=== PATIENT | female | born 1945 | race Caucasian/White ===

== ENCOUNTER → 2024-07-22 | Outpatient (CLI) | payer MEDICARE, OTHER, SELFPAY ==
[2024-07-22 15:23] LABS: Absolute Lymphocyte Count 1.45 X10^3/uL (0.83-4.51); Absolute Neutrophil Count 4.4 X10^3/uL (2.0-7.7); Basophil# 0.02 X10^3/uL; Basophil% 0.3 % (0-1); Eosinophils% 1.5 % (0-5); Hematocrit 38.2 % (37-47); Hemoglobin 12.1 g/dL (12.0-15.0); Lymphocyte # 1.45 X10^3/ul (0.83-4.51); Lymphocyte % 22.2 % (19-41); Mean Corp Hgb Conc 31.7 g/dL (32-36); Mean Corpuscular Hgb 29.8 pg (27.0-32.0); Mean Corpuscular Volume 94.1 fL (81-99); Mean Platelet Vol. 11.2 fl (6.2-12.0); Monocyte# 0.51 X10^3/uL; Monocyte% 7.8 % (0-10); NRBC Flagged by Analyzer 0 % (0-5); Neutrophil # 4.44 X10^3/uL (2.7-7.7); Neutrophil % 67.9 % (47-70); Platelet Count 293 K/mm3 (150-450); RBC Distribution Width CV 13.1 % (11.6-14.6); RBC Distribution Width SD 45.3 fl (35.1-43.9); Red Blood Count 4.06 M/mm3 (4.2-5.4); White Blood Count 6.5 K/mm3 (4.4-11.0)
[2024-07-22 19:38] LABS: Hemoglobin A1c 5.5 % (3.8-5.6)
== END | disposition home or self-care (01) ==
LOC: MFPLAB 12:16
PROVIDERS: PCP Family Medicine; Visit Provider Family Medicine
DX: H35.60 Retinal hemorrhage, unspecified eye (principal)
CPT/HCPCS: 36415; 83036; 85025

== ENCOUNTER → 2024-08-29 | Outpatient (CLI) | payer MEDICARE, OTHER, SELFPAY ==
[2024-08-29 18:12] LABS: Protein, Urine (Random) < 6.0 mg/dL (<11.9); Protein:Creat Ratio 339 mg/g CRE (0-200)
[2024-08-29 18:19] LABS: Anion Gap 4 (5-15); BUN 19 mg/dL (7-18); BUN/Creat Ratio 27.4 RATIO (10-20); Calcium,Total 9.2 mg/dL (8.5-10.1); Chloride 102 mmol/L (98-107); Cholesterol 215 mg/dL (200); Creatinine, Serum 0.69 mg/dL (0.55-1.02); EST Glomerular Filtration Rate 87 mL/min (>60); Est Glom Filt Rate - Afr Amer 105 mL/min (>60); Glucose 80 mg/dL (74-106); High Density Lipoprotein 73 mg/dL; Potassium 4.1 mmol/L (3.5-5.1); Sodium Level 135 mmol/L (136-145); Triglycerides 122 mg/dL; Very Low Density Lipoprotein 24 mg/dL (5-40)
== END | disposition home or self-care (01) ==
LOC: MFPLAB 14:27
PROVIDERS: PCP Family Medicine; Visit Provider Family Medicine
DX: I10 Essential (primary) hypertension (principal)
CPT/HCPCS: 36415; 80048; 80061; 82570; 84156

== ENCOUNTER → 2025-06-23 | Outpatient (CLI) | payer MEDICARE, OTHER, SELFPAY ==
--- OUTSIDE RECORDS SUMMARY | 2025-06-23 09:59 | XMS RPT_ITS | CCD ---
Author Organization [facility] Care Team Providers Care Production Artist Name Role Phone Mitzi Oconnor Primary Care Unavailable Mitzi Oconnor Attending Unavailable Mitzi Oconnor Primary Care Unavailable Mitzi Oconnor Attending Unavailable Problems Problem Classification Problem Date Documented Da te Episodic/Chronic Essential hypertension (1 source) Essential (primary) hypertension; Translations: [Essential (primary) hypertension] Onset: 09-20-2024 Chronic Medical examination/evaluation (1 source) Encounter for examination for normal comparison and control in clinical research program; Translations: [Encounter for examination for normal comparison and control in clinical research program] Onset: 07-09-2018 Episodic Retinal detachments; defects; vascular occlusion; and retinopathy (1 source) Retinal hemorrhage, unspecified eye; Translations: [Retinal hemorrhage, unspecified eye] Onset: 08-11-2024 Chronic Results Test Name Value Interpretation Reference Range Facility Basic Metabolic Profile (BMP )on 08-29-2024 BUN/CRE 27.4 RATIO High 10-[address] [facility] Comment on above: Performed By: #### L 500.2500, L500.4100, L501.0900 #### [facility] [address] [place], [address] CA,Total 9.2 mg/dL Normal 8.5-10.[address] [facility] Comment on above: Performed By: #### L 500.2500, L500.4100, L501.0900 #### [facility] [address] [place], [address] Chloride [Moles/Vol] 102 mmol/L Normal 98-[address] [facility] Comment on above: Performed By: #### L 500.2500, L500.4100, L501.0900 #### [facility] [address] [place], [address] CO2 [Moles/Vol] 29.0 mmol/L Normal 21.0-32.[address] [facility] Comment on above: Performed By: #### L 500.2500, L500.4100, L501.0900 #### [facility] [address] [place], [address] Creatinine [Mass/Vol] 0.69 mg/dL Normal 0.55-1.[address] [facility] Comment on above: Result Comment: The validity of the calculated GFR GFRAA in patients over 70 years has not been determined. Clinical correlation is essential. Performed By: #### L 500.2500, L500.4100, L501.0900 #### [facility] [address] [place], [address] EST GFR - AA 105 mL/min Normal >[address] [facility] Comment on above: Result Comment: Afri can Montserratian GFR Calc Performed By: #### L 500.2500, L500.4100, L501.0900 #### [facility] [address] [place], [address] GAP 4 Low 5-[address] [facility] Comment on above: Performed By: #### L 500.2500, L500.4100, L501.0900 #### [facility] [address] [place], [address] GFR/1.73 sq M.predicted among non-blacks MDRD (S/P/Bld) [Vol rate/Area] 87 mL/min/{1.73_m2} Normal >[address] [facility] Comment on above: Result Comment: Non- GFR Calc Performed By: #### L 500.2500, L500.4100, L501.0900 #### [facility] [address] [place], [address] Glucose [Mass/Vol] 80 mg/dL Normal 74-[address] [facility] Comment on above: Performed By: #### L 500.2500, L500.4100, L501.0900 #### [facility] [address] [place], [address] Potassium [Moles/Vol] 4.1 mmol/L Normal 3.5-5.[address] [facility] Comment on above: Performed By: #### L 500.2500, L500.4100, L501.0900 #### [facility] [address] [place], [address] Sodium [Moles/Vol] 135 mmol/L Low 136-[address] [facility] Comment on above: Performed By: #### L 500.2500, L500.4100, L501.0900 #### [facility] [address] [place], [address] Urea nitrogen [Mass/Vol] 19 mg/dL High 7-[address] [facility] Comment on above: Performed By: #### L 500.2500, L500.4100, L501.0900 #### [facility] [address] [place], [address] Lipid Profileon 08-29-2024 Cholesterol [Mass/Vol] 215 mg/dL High [address] [facility] Comment on above: Result Comment: <200 mg/dL Desirable 200-240 mg/dL Borderline >240 mg/dL High Risk Performed By: #### L 500.2500, L500.4100, L501.0900 #### [facility] [address] [place], [address] Cholesterol in HDL [Mass/Vol] 73 mg/dL Normal [facility] Comment on above: Result Comment: The drugs N-Acetylcysteine and Metamizole may falsely depress this assay. Reference Range HDL <40 mg/dL Low HDL Cholesterol HDL >or= 60 mg/dL High HDL Cholesterol Performed By: #### L 500.2500, L500.4100, L501.0900 #### [facility] [address] [place], [address] Cholesterol in LDL [Mass/Vol] 118 mg/dL Normal 0-[address] [facility] Comment on above: Performed By: #### L 500.2500, L500.4100, L501.0900 #### [facility] [address] [place], [address] Cholesterol in VLDL [Mass/Vol] 24 mg/dL Normal 5-[address] [facility] Comment on above: Performed By: #### L 500.2500, L500.4100, L501.0900 #### [facility] [address] [place], [address] Triglyceride [Mass/Vol] 122 mg/dL Normal [facility] Comment on above: Result Comment: The drugs N-Acetylcysteine and Metamizole may falsely depress this assay. Serum Triglycerides Reference Interval Normal <150 mg/dL Borderline high 150 - 199 mg/dL High 200 - 499 mg/dL Very High > or = 500 mg/dL Performed By: #### L 500.2500, L500.4100, L501.0900 #### [facility] [address] [place], [address] Protein+Creatinine Ratio,Uri neon 08-29-2024 PROT:CRE RATIO 339 mg/g CRE High 0-[address] [facility] Comment on above: Performed By: #### L 500.2500, L500.4100, L501.0900 #### [facility] [address] [place], [address] PROTEIN,UR.RAN. < 6.0 Normal <11.[address] [facility] Comment on above: Performed By: #### L 500.2500, L500.4100, L501.0900 #### [facility] [address] [place], [address] UR CREAT 17.10 mg/dL Normal NO RANGE EST. [facility] Comment on above: Performed By: #### L 500.2500, L500.4100, L501.0900 #### [facility] [address] [place], [address] CBC W/Diff, Automatedon 09-0 -2023 Absolute Lymph 1.45 X10 3/uL Normal 0.83-4.[address] [facility] Comment on above: Order Comment: Order Date: 07/22/24 Order Info: 0184-1 - CBCD Performed By: #### L 501.9985, L100.0100 #### [facility] [address] [place], [address] Absolute Neut 4.4 X10 3/uL Normal 2.0-7.[address] [facility] Comment on above: Order Comment: Order Date: 07/22/24 Order Info: 018- - CBCD Performed By: #### L 501.9985, L100.0100 #### [facility] [address] [place], [address] Basophils/100 WBC (Bld) 0.3 % Normal 0-[address] [facility] Comment on above: Order Comment: Order Date: 07/22/24 Order Info: 018-1 - CBCD Performed By: #### L 501.9985, L100.0100 #### [facility] [address] [place], [address] Eosinophils/100 WBC (Bld) 1.5 % Normal 0-[address] [facility] Comment on above: Order Comment: Order Date: 07/22/24 Order Info: 0184-1 - CBCD Performed By: #### L 501.9985, L100.0100 #### [facility] [address] [place], [address] Erythrocyte distribution width (RBC) [Ratio] 13.1 % Normal 11.6-14.[address] [facility] Comment on above: Order Comment: Order Date: 07/22/24 Order Info: 0184-1 - CBCD Performed By: #### L 501.9985, L100.0100 #### [facility] [address] [place], [id number] Hematocrit (Bld) [Volume fraction] 38.2 % Normal 37-[address] [facility] Comment on above: Order Comment: Order Date: 07/22/24 Order Info: 0184- - CBCD Performed By: #### L 501.9985, L100.0100 #### [facility] [address] [place], [id number] Hemoglobin (Bld) [Mass/Vol] 12.1 g/dL Normal 12.0-15.[address] [facility] Comment on above: Order Comment: Order Date: 07/22/24 Order Info: 018- - CBCD Performed By: #### L 501.9985, L100.0100 #### [facility] [address] [place], [id number] IG% 0.300 Normal 0.0-0.[address] [facility] Comment on above: Order Comment: Order Date: 07/22/24 Order Info: 018- - CBCD Result Comment: IG% - Immature Granulocytes (promyelocytes, myelocytes and metamyelocytes) > 1% indicates that a LEFT SHIFT is Present. Performed By: #### L 501.9985, L100.0100 #### [facility] [address] [place], [id number] Lymphocytes/100 WBC (Bld) 22.2 % Normal 19-[address] [facility] Comment on above: Order Comment: Order Date: 07/22/24 Order Info: 0184- - CBCD Performed By: #### L 501.9985, L100.0100 #### [facility] [address] [place], [id number] MCH (RBC) [Entitic mass] 29.8 pg Normal 27.0-32.[address] [facility] Comment on above: Order Comment: Order Date: 07/22/24 Order Info: 0184- - CBCD Performed By: #### L 501.9985, L100.0100 #### [facility] [address] [place], [address] MCHC (RBC) [Mass/Vol] 31.7 g/dL Low 32-[address] [facility] Comment on above: Order Comment: Order Date: 07/22/24 Order Info: 0184-1 - CBCD Performed By: #### L 501.9985, L100.0100 #### [facility] [address] [place], [address] MCV (RBC) [Entitic vol] 94.1 fL Normal 81-[address] [facility] Comment on above: Order Comment: Order Date: 07/22/24 Order Info: 0184-1 - CBCD Performed By: #### L 501.9985, L100.0100 #### [facility] [address] [place], [address] Monocytes/100 WBC (Bld) 7.8 % Normal 0-[address] [facility] Comment on above: Order Comment: Order Date: 07/22/24 Order Info: 018-1 - CBCD Performed By: #### L 501.9985, L100.0100 #### [facility] [address] [place], [address] Neutrophils/100 WBC (Bld) 67.9 % Normal 47-[address] [facility] Comment on above: Order Comment: Order Date: 07/22/24 Order Info: 0184-1 - CBCD Performed By: #### L 501.9985, L100.0100 #### [facility] [address] [place], [address] Nucleated RBC (Bld) [#/Vol] 0 10*3/uL Normal 0-[address] [facility] Comment on above: Order Comment: Order Date: 07/22/24 Order Info: 0184-1 - CBCD Performed By: #### L 501.9985, L100.0100 #### [facility] [address] [place], [id number] Platelet mean volume (Bld) [Entitic vol] 11.2 fL Normal 6.2-12.[address] [facility] Comment on above: Order Comment: Order Date: 07/22/24 Order Info: 0184-1 - CBCD Performed By: #### L 501.9985, L100.0100 #### [facility] [address] [place], [id number] Platelets (Bld) [#/Vol] 293 10*3/uL Normal 150-[address] [facility] Comment on above: Order Comment: Order Date: 07/22/24 Order Info: 0184-1 - CBCD Performed By: #### L 501.9985, L100.0100 #### [facility] [address] [place], [id number] RBC (Bld) [#/Vol] 4.06 10*6/uL Low 4.2-5.4 [facility] Comment on above: Order Comment: Order Date: 07/22/24 Order Info: 0184-1 - CBCD Performed By: #### L 501.9985, L100.0100 #### [facility] [address] [place], [id number] RDW SD 45.3 fl High 35.1-43.[address] [facility] Comment on above: Order Comment: Order Date: 07/22/24 Order Info: 0184-1 - CBCD Performed By: #### L 501.9985, L100.0100 #### [facility] [address] [place], [id number] WBC (Bld) [#/Vol] 6.5 10*3/uL Normal 4.4-11.0 [facility] Comment on above: Order Comment: Order Date: 07/22/24 Order Info: 0184-1 - CBCD Performed By: #### L 501.9985, L100.0100 #### [facility] [address] [place], [place], [address] Hemoglobin A1con 07-22-2024 HbA1c (Bld) [Mass fraction] 5.5 % Normal 3.8-5.[address] [facility] Comment on above: Order Comment: Order Date: 07/22/24 Order Info: 4548-4 - A1C Result Comment: Norm al < 5.7 % Prediabetic 5.7 - 6.4 % Diabetic >or= 6.5 % Please note range changes. Performed By: #### L 501.9985, L100.0100 #### [facility] [address] [place], [place], [address] CNOVon 07-09-2018 CNOV Office Visit ([facility]) KENYA DELACRUZ ([id number]) 1945 [facility] Time Provider Department07/09/18 10:00 AM LAB [facility] [address] During your visit today, we recorded the following information about you:Satnam Gasca LPN, BRAKE TESTER 07/09/2018 5:17 PM Mindi Delacruz is a 73 year old female patient here for the DilatedCardiomyopathy Precision Medicine Study (DCM) #: 13-406 Dilated Cardiomyopathy Precision Medicine Study (DCM)Aviation Safety Technician: Dr. Gaetano Vargas Coordinator: Mundo Gasca1. Aviation Safety Technician and/or Research Nurse explained the protocol to thesubject? YES2. Risks, benefits, alternative procedures explained? YES3. Reviewed HIPPA disclosure information with the subject? YES4. Follow-up requirements explained? YES5. Reviewed research related injuries and cost with subject? YES6. Subject asked appropriate questions and answers provided to the subject? YES7. Subject read and verbally understands informed consent? YES8. Subject was given a copy of the signed informed consent? YES9. Family present at the time of the consent: Subject and . Subject ID Band in place? YESConsent signed date/time 07/09/2018 @ 1010 by: Nicol Sherman of [facility] minor child, was both the parent and child signatures obtained: MARLENE Ramachandran1. Study participant group: Family [id number]. Confirm interest in family based genetics? YES13. Enrollment Tracking form completed? YES14. Medical Records Query completed? YES15. Baseline Patient Interview Questionnaire completed? YES via phone with [facility]16. Baseline Life and Family Survey completed? YES17. Medical Release form/PHI signed? YES18. If child obtained parents signature: NA19. DCM brochure provided? YES20. Cardiovascular Screening performed? YES21. Did participant agree to have sample and information stored for potentialuse in genetic research? Yes22. Did participant agree to being contacted regarding future use of samplesand information? Yes23. Blood Drawn as per protocol? YesTime: 1150 Butterfly used in left antecubital area. Blood drawn with vacutainerand labs drawn per protocol. Butterfly removed after blood draw and secured with sterilegauze. 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 Gaetano Vargas Coordinator: Mundo Gasca1. Aviation Safety Technician and/or Research Nurse explained the protocol tothe subject? YES2. Risks, benefits, alternative procedures explained? YES3. Reviewed HIPPA disclosure information with the subject? YES4. Follow-up requirements explained? YES5. Reviewed research related injuries and cost with subject? YES6. Subject asked appropriate questions and answers provided to thesubject? YES7. Subject read and verbally understands informed consent? YES8. Subject was given a copy of the signed informed consent? YES9. Family present at the time of the consent: Subject and [email or web address]. Subject ID Band in place? YESConsent signed date/time 07/09/2018 @ 1010 by: Nicol Sherman of [facility] minor child, was both the parent and child signatures obtained: MARLENE Ramachandran1. Study participant group: Family [id number]. Confirm interest in family based genetics? YES13. Enrollment Tracking form completed? YES14. Medical Records Query completed? YES15. Baseline Patient Interview Questionnaire completed? YES via phone [email or web address]. Baseline Life and Family Survey completed? YES17. Medical Release form/PHI signed? YES18. If child obtained parents signature: NA19. DCM brochure provided? YES20. Cardiovascular Screening performed? YES21. Did participant agree to have sample and information stored forpotential use in genetic research? Yes22. Did participant agree to being contacted regarding future use ofsamples and information? Yes23. Blood Drawn as per protocol? YesTime: 1150 Butterfly used in left antecubital area. Blood drawn withvacutainer and labs drawn per protocol. Butterfly removed after blood draw and secured withsterile gauze. Patient tolerated procedure well.Satnam Gasca LPN Normal [facility] Encounters Encounter Date Encounter Type Care Provider Facility Start: 08-29-2024 End: 08-29-2024 ambulatory Mitzi Oconnor Facility:[facility] Start: 07-22-2024 End: 07-22-2024 ambulatory Mitzi S Jollmonroe Facility:[facility] Start: 07-09-2018 End: 07-09-2018 Patient encounter [facility] Payers Date Payer Category Payer Medicare [id number] 2024 Self-pay 2024 Unknown [id number] Unknown [id number] Unknown [id number] Summary Purpose Family History No Family History Records FoundNo Family History Records Found Advance Directives No Advanced Directives Records FoundNo Advanced Directives Records Found Additional Source Comments INFORMATION SOURCE (unrecogn ized section and content) DATE CREATED AUTHOR 07/11/2018 [facility] DATE CREATED AUTHOR AUTHOR'S ORGANIZ ATION 09/22/2024 [facility] FOR RECORDS PERTAINING TO PATIENTS WHO ARE OR HAVE BEEN ENROLLED IN A CHEMICAL DEPENDENCY/SUBSTANCEABUSE PROGRAM, SOME INFORMATION MAY BE OMITTED. This clinical summary was aggregated from multiple sources. Caution should be exercised in using it in the provision of clinical care. This summary normalizes information from multiple sources, and as a consequence, information in this document may materially change the coding, format and clinical context of patient data. In addition, data may be omitted in some cases. CLINICAL DECISIONS SHOULD BE BASED ON THE PRIMARY CLINICAL RECORDS. [employer] provides no warranty or guarantee of the accuracy or completeness of information in this document.
--- OUTSIDE RECORDS SUMMARY | 2025-06-23 09:59 | XMS RPT_ITS | CCD ---
Author Organization [facility] Care Team Providers Care Fiscal Manager Name Role Phone Mitzi Oconnor Primary Care [...] )on 08-29-2024 BUN/CRE 27.4 RATIO High 10-20 [place] Comment on above: Performed By: #### L 500.2500, L500.4100, L501.0900 #### [facility] [address] [place], [address] CA,Total 9.2 mg/dL Normal 8.5-10.1 [place] Comment on above: Performed By: #### L 500.2500, L500.4100, L501.0900 #### [facility] [address] [place], [address] Chloride [Moles/Vol] 102 mmol/L Normal 98-107 [place] Comment on above: Performed By: #### L 500.2500, L500.4100, L501.0900 #### [facility] [address] [place], [address] CO2 [Moles/Vol] 29.0 mmol/L Normal 21.0-32.0 [place] Comment on above: Performed By: #### L 500.2500, L500.4100, L501.0900 #### [facility] [address] [place], [address] Creatinine [Mass/Vol] 0.69 mg/dL Normal 0.55-1.02 [place] Comment on above: Result Comment: The validity of the calculated GFR GFRAA in patients over 70 years has not been determined. Clinical correlation is essential. Performed By: #### L 500.2500, L500.4100, L501.0900 #### [facility] [address] [place], [address] EST GFR - AA 105 mL/min Normal >60 [place] Comment on above: Result Comment: Afri can Gambian GFR Calc Performed By: #### L 500.2500, L500.4100, L501.0900 #### [facility] [address] [place], [address] GAP 4 Low 5-15 [place] Comment on above: Performed By: #### L 500.2500, L500.4100, L501.0900 #### [facility] [address] [place], [address] GFR/1.73 sq M.predicted among non-blacks MDRD (S/P/Bld) [Vol rate/Area] 87 mL/min/{1.73_m2} Normal >60 [place] Comment on above: Result Comment: Non- GFR Calc Performed By: #### L 500.2500, L500.4100, L501.0900 #### [facility] [address] [place], [address] Glucose [Mass/Vol] 80 mg/dL Normal 74-106 [place] Comment on above: Performed By: #### L 500.2500, L500.4100, L501.0900 #### [facility] [address] [place], [address] Potassium [Moles/Vol] 4.1 mmol/L Normal 3.5-5.1 [place] Comment on above: Performed By: #### L 500.2500, L500.4100, L501.0900 #### [facility] [address] [place], [address] Sodium [Moles/Vol] 135 mmol/L Low 136-145 [place] Comment on above: Performed By: #### L 500.2500, L500.4100, L501.0900 #### [facility] [address] [place], [address] Urea nitrogen [Mass/Vol] 19 mg/dL High 7-18 [place] Comment on above: Performed By: #### L 500.2500, L500.4100, L501.0900 #### [facility] [address] [place], [address] Lipid Profileon 08-29-2024 Cholesterol [Mass/Vol] 215 mg/dL High 200 [place] Comment on above: Result Comment: <200 mg/dL Desirable 200-240 mg/dL Borderline >240 mg/dL High Risk Performed By: #### L 500.2500, L500.4100, L501.0900 #### [facility] [address] [place], [address] Cholesterol in HDL [Mass/Vol] 73 mg/dL Normal [place] Comment on above: Result Comment: The drugs N-Acetylcysteine and Metamizole may falsely depress this assay. Reference Range HDL <40 mg/dL Low HDL Cholesterol HDL >or= 60 mg/dL High HDL Cholesterol Performed By: #### L 500.2500, L500.4100, L501.0900 #### [facility] [address] [place], [address] Cholesterol in LDL [Mass/Vol] 118 mg/dL Normal 0-130 [place] Comment on above: Performed By: #### L 500.2500, L500.4100, L501.0900 #### [facility] [address] [place], [address] Cholesterol in VLDL [Mass/Vol] 24 mg/dL Normal 5-40 [place] Comment on above: Performed By: #### L 500.2500, L500.4100, L501.0900 #### [facility] [address] [place], [address] Triglyceride [Mass/Vol] 122 mg/dL Normal [place] Comment on above: Result Comment: The drugs N-Acetylcysteine and Metamizole may falsely depress this assay. Serum Triglycerides Reference Interval Normal <150 mg/dL Borderline high 150 - 199 mg/dL High 200 - 499 mg/dL Very High > or = 500 mg/dL Performed By: #### L 500.2500, L500.4100, L501.0900 #### [facility] [address] [place], [address] Protein+Creatinine Ratio,Uri neon 08-29-2024 PROT:CRE RATIO 339 mg/g CRE High 0-200 [place] Comment on above: Performed By: #### L 500.2500, L500.4100, L501.0900 #### [facility] [address] [place], [address] PROTEIN,UR.RAN. < 6.0 Normal <11.9 [place] Comment on above: Performed By: #### L 500.2500, L500.4100, L501.0900 #### [facility] [address] [place], [address] UR CREAT 17.10 mg/dL Normal NO RANGE EST. [place] Comment on above: Performed By: #### L 500.2500, L500.4100, L501.0900 #### [facility] [address] [place], [address] CBC W/Diff, Automatedon 09-0 -2023 Absolute Lymph 1.45 X10 3/uL Normal 0.83-4.51 [place] Comment on above: Order Comment: Order Date: 07/22/24 Order Info: 0184-1 - CBCD Performed By: #### L 501.9985, L100.0100 #### [facility] [address] [place], [address] Absolute Neut 4.4 X10 3/uL Normal 2.0-7.7 [place] Comment on above: Order Comment: Order Date: 07/22/24 Order Info: 018- - CBCD Performed By: #### L 501.9985, L100.0100 #### [facility] [address] [place], [address] Basophils/100 WBC (Bld) 0.3 % Normal 0-1 [place] Comment on above: Order Comment: Order Date: 07/22/24 Order Info: 018-1 - CBCD Performed By: #### L 501.9985, L100.0100 #### [facility] [address] [place], [address] Eosinophils/100 WBC (Bld) 1.5 % Normal 0-5 [place] Comment on above: Order Comment: Order Date: 07/22/24 Order Info: 0184-1 - CBCD Performed By: #### L 501.9985, L100.0100 #### [facility] [address] [place], [address] Erythrocyte distribution width (RBC) [Ratio] 13.1 % Normal 11.6-14.6 [place] Comment on above: Order Comment: Order Date: 07/22/24 Order Info: 0184-1 - CBCD Performed By: #### L 501.9985, L100.0100 #### [facility] [address] [place], [address] Hematocrit (Bld) [Volume fraction] 38.2 % Normal 37-47 [place] Comment on above: Order Comment: Order Date: 07/22/24 Order Info: 0184- - CBCD Performed By: #### L 501.9985, L100.0100 #### [facility] [address] [place], [address] Hemoglobin (Bld) [Mass/Vol] 12.1 g/dL Normal 12.0-15.0 [place] Comment on above: Order Comment: Order Date: 07/22/24 Order Info: 018- - CBCD Performed By: #### L 501.9985, L100.0100 #### [facility] [address] [place], [address] IG% 0.300 Normal 0.0-0.9 [place] Comment on above: Order Comment: Order Date: 07/22/24 Order Info: 018- - CBCD Result Comment: IG% - Immature Granulocytes (promyelocytes, myelocytes and metamyelocytes) > 1% indicates that a LEFT SHIFT is Present. Performed By: #### L 501.9985, L100.0100 #### [facility] [address] [place], [address] Lymphocytes/100 WBC (Bld) 22.2 % Normal 19-41 [place] Comment on above: Order Comment: Order Date: 07/22/24 Order Info: 0184- - CBCD Performed By: #### L 501.9985, L100.0100 #### [facility] [address] [place], [address] MCH (RBC) [Entitic mass] 29.8 pg Normal 27.0-32.0 [facility] Comment on above: Order Comment: Order Date: 07/22/24 Order Info: 0184- - CBCD Performed By: #### L 501.9985, L100.0100 #### [facility] [address] [place], [address] MCHC (RBC) [Mass/Vol] 31.7 g/dL Low 32-36 [place] Comment on above: Order Comment: Order Date: 07/22/24 Order Info: 0184-1 - CBCD Performed By: #### L 501.9985, L100.0100 #### [facility] [address] [place], [address] MCV (RBC) [Entitic vol] 94.1 fL Normal 81-99 [place] Comment on above: Order Comment: Order Date: 07/22/24 Order Info: 0184-1 - CBCD Performed By: #### L 501.9985, L100.0100 #### [facility] [address] [place], [address] Monocytes/100 WBC (Bld) 7.8 % Normal 0-10 [place] Comment on above: Order Comment: Order Date: 07/22/24 Order Info: 018-1 - CBCD Performed By: #### L 501.9985, L100.0100 #### [facility] [address] [place], [address] Neutrophils/100 WBC (Bld) 67.9 % Normal 47-70 [place] Comment on above: Order Comment: Order Date: 07/22/24 Order Info: 0184-1 - CBCD Performed By: #### L 501.9985, L100.0100 #### [facility] [address] [place], [address] Nucleated RBC (Bld) [#/Vol] 0 10*3/uL Normal 0-5 [place] Comment on above: Order Comment: Order Date: 07/22/24 Order Info: 0184-1 - CBCD Performed By: #### L 501.9985, L100.0100 #### [facility] [address] [place], [address] Platelet mean volume (Bld) [Entitic vol] 11.2 fL Normal 6.2-12.0 [place] Comment on above: Order Comment: Order Date: 07/22/24 Order Info: 0184-1 - CBCD Performed By: #### L 501.9985, L100.0100 #### [facility] [address] [place], [address] Platelets (Bld) [#/Vol] 293 10*3/uL Normal 150-450 [place] Comment on above: Order Comment: Order Date: 07/22/24 Order Info: 0184-1 - CBCD Performed By: #### L 501.9985, L100.0100 #### [facility] [address] [place], [address] RBC (Bld) [#/Vol] 4.06 10*6/uL Low 4.2-5.4 [facility] Comment on above: Order Comment: Order Date: 07/22/24 Order Info: 0184-1 - CBCD Performed By: #### L 501.9985, L100.0100 #### [facility] [address] [place], [address] RDW SD 45.3 fl High 35.1-43.9 [place] Comment on above: Order Comment: Order Date: 07/22/24 Order Info: 0184-1 - CBCD Performed By: #### L 501.9985, L100.0100 #### [facility] [address] [place], [address] WBC (Bld) [#/Vol] 6.5 10*3/uL Normal 4.4-11.0 [facility] Comment on above: Order Comment: Order Date: 07/22/24 Order Info: 0184-1 - CBCD Performed By: #### L 501.9985, L100.0100 #### [facility] [address] [place], [place], [address] Hemoglobin A1con 07-22-2024 HbA1c (Bld) [Mass fraction] 5.5 % Normal 3.8-5.6 [place] Comment on above: Order Comment: Order Date: 07/22/24 Order Info: 4548-4 - A1C Result Comment: Norm al < 5.7 % Prediabetic 5.7 - 6.4 % Diabetic >or= 6.5 % Please note range changes. Performed By: #### L 501.9985, L100.0100 #### [facility] [address] [place], [place], [address] CNOVon 07-09-2018 CNOV Office Visit ([facility]) KENYA DELACRUZ ([id number]) 1945 [facility] Time Provider Department07/09/18 10:00 AM LAB [facility] [address] During your visit today, we recorded the following information about you:Satnam Gasca LPN, BUTTONHOLE MACHINE OPERATOR 07/09/2018 5:17 PM Mindi Delacruz is a 73 year old female patient here for the DilatedCardiomyopathy Precision Medicine Study (DCM) #: [id number] Dilated Cardiomyopathy Precision Medicine Study (DCM)Medical Lab Technologist: Dr. Gaetano Vargas Coordinator: Mundo Gasca1. Medical Lab Technologist and/or Research Nurse explained the protocol to [...] the time of the consent: Subject and [email or web address]. Subject ID Band in place? YESConsent signed date/time 07/09/2018 @ 1010 by: Nicol Sherman of [facility] minor child, was both the parent and child signatures obtained: MARLENE Ramachandran1. Study participant group: Family [id number]. Confirm interest in family based genetics? YES13. [...] Status:Closed by SATNAM GASCA on 07/09/18 [facility]ESS[facility] 07-09-2018 Protein mass conc HNO ID: [id number] thor: Satnam Mcgowan) RK Gascaervice: (none)Author Type: LICENSED NURSEType: Progress NotesFiled: 07/09/2018 5:17 PMNote Text:Kenya Delacruz is a 73 year old female patient here for the DilatedCardiomyopathy Precision Medicine Study (DCM) /IRB #: [id number] Dilated Cardiomyopathy Precision Medicine Study (DCM)Medical Lab Technologist: Dr. Gaetano Vargas Coordinator: Mundo Gasca1. Medical Lab Technologist and/or Research Nurse explained the protocol tothe [...] the time of the consent: Subject and [id number]. Subject ID Band in place? YESConsent signed date/time 07/09/2018 @ 1010 by: Nicol Sherman of [facility] minor child, was both the parent and child signatures obtained: MARLENE Ramachandran1. Study participant group: Family [email or web address]. Confirm interest in family based genetics? YES13. Enrollment Tracking form completed? YES14. Medical Records Query completed? YES15. Baseline Patient Interview Questionnaire completed? YES via phone [id number]. Baseline Life and Family Survey completed? YES17. [...] Patient tolerated procedure well.Satnam Gasca LPN Normal [facility] Encounters Encounter Date Encounter Type Care Provider Facility Start: 08-29-2024 End: 08-29-2024 ambulatory Mitzi Oconnor Facility:[facility] Start: 07-22-2024 End: 07-22-2024 ambulatory Mitzi S Jollmonroe Facility:[facility] Start: 07-09-2018 End: 07-09-[address] [facility] Payers Date Payer Category Payer Medicare [id number] 2024 Self-pay 2024 Unknown [id number] Unknown [id number] Unknown [id number] Summary Purpose Family History No Family History Records FoundNo Family History Records Found Advance Directives No Advanced Directives Records FoundNo Advanced Directives Records Found Additional Source Comments INFORMATION SOURCE (unrecogn ized section and content) DATE CREATED AUTHOR 07/11/2018 [facility] DATE CREATED AUTHOR AUTHOR'S ORGANIZ ATION 09/22/2024 [facility] FOR RECORDS PERTAINING TO PATIENTS WHO ARE [...] BE BASED ON THE PRIMARY CLINICAL RECORDS. [employer] provides no warranty or guarantee of the accuracy or completeness of information in this document.
[2025-06-23 11:19] LABS: Creatinine, Urine (random) 55.00 mg/dL (28.00-217.00); Microalbumin,Random Urine < 12.0 mg/L (<20 mg/L)
[2025-06-23 11:25] LABS: Anion Gap 12 (5-15); BUN 16 mg/dL (4-19); BUN/Creat Ratio 27.5 RATIO (10-20); Calcium,Total 9.5 mg/dL (7.6-11.0); Carbon Dioxide 24.0 mmol/L (21.0-32.0); Chloride 99 mmol/L (98-108); Glucose 95 mg/dL (70-99); Potassium 3.8 mmol/L (3.3-5.1)
[2025-06-23 12:06] LABS: Cholesterol 205 mg/dL (<=200); Low Density Lipoprotein Calc. 111 mg/dL; Triglycerides 117 mg/dL; Very Low Density Lipoprotein 23 mg/dL (5-40); cholesterol:hdl ratio screen 2.88
== END | disposition home or self-care (01) ==
LOC: MFPLAB 09:17
PROVIDERS: PCP Family Medicine; Referring Provider Family Medicine; Visit Provider Family Medicine
DX: I10 Essential (primary) hypertension (principal)
CPT/HCPCS: 36415; 80048; 80061; 82043; 82570

== ENCOUNTER → 2025-07-03 | Outpatient (CLI) | payer MEDICARE, OTHER, SELFPAY ==
--- NOTE | 2025-07-03 10:14 | BI_ITS ---
EXAM: SCRN MAMM (CAD)W/JAY BILAT DATE: 07/03/2025 CLINICAL HISTORY: F, Age 80 y/o , SCREENING TECHNIQUE: SCRN MAMM (CAD)W/JAY BILAT COMPARISON: None. This is a baseline study. FINDINGS: TISSUE DENSITY: The breasts are heterogeneously dense, which may obscure small masses. Bilateral Breast Mammographic Findings: Partially obscured isodense masses are seen in the superior outer, far posterior aspect of both the right and left breasts. These all measure less than 3 mm each. Further workup is indicated. BI/SCRN MAMM (CAD)W/JAY BILAT IMPRESSION: Partially obscured isodense masses are seen in the superior outer, far posterio r aspect of both the right and left breasts. These all measure less than 3 mm each. Further workup is indicated. OVERALL FINAL ASSESSMENT BI-RADS 0: INCOMPLETE - NEED ADDITIONAL IMAGING EVALUATION. RECOMMENDATION: Additional Views obtained/call backs A letter with findings and recommendations will be mailed to the patient. Reading Location: [id number]
--- OUTSIDE RECORDS SUMMARY | 2025-07-03 21:43 | XMS RPT_ITS | CCD ---
Author Organization [facility] Care Team Providers Care Computer Clerk Name Role Phone Luis aMnuel COSTA, Dr. Liu Primary Care Provider Luis Manuel COSTA, Dr. Liu Attending Provider Luis Manuel COSTA, Dr. Liu Referring Provider Mitzi Oconnor Attending Unavailable Joeugene, Mitzi S Primary Care Unavailable Elvin, Mitzi S Attending Unavailable Elvin, Mitzi S Primary Care Unavailable Noe Issa Referring Unavailable Noe Issa Attending Unavailable Noe Issa Primary Care Unavailable Noe Issa Attending Unavailable Noe Issa Primary Care Unavailable Noe Issa Referring Unavailable Problems Problem Classification Problem Date Documented Da te Episodic/Chronic Essential hypertension (1 source) Essential (primary) hypertension; Translations: [Essential (primary) hypertension] Onset: 06-30-2025 Chronic Medical examination/evaluation (1 source) Encounter for examination for normal comparison and control in clinical research program; Translations: [Encounter for examination for normal comparison and control in clinical research program] Onset: 07-09-2018 Episodic Other screening for suspected conditions (not mental disorders or infectious disease) (1 source) Encounter for screening mammogram for malignant neoplasm of breast; Translations: [Encounter for screening mammogram for malignant neoplasm of breast] Onset: 07-01-2025 Episodic Retinal detachments; defects; vascular occlusion; and retinopathy (1 source) Retinal hemorrhage, unspecified eye; Translations: [Retinal hemorrhage, unspecified eye] Onset: 08-11-2024 Chronic Results Test Name Value Interpretation Reference Range Facility Anion gap in Serum or Plasma Ordered By: Noe Issa on 06-23-2025 Anion gap [Moles/Vol] 12 mmol/L 5-15 [facility] BUN/creatinine ratioOrdered By: Noe Issa on 06-23-2025 Urea nitrogen/Creatinine [Mass ratio] 27.5 mg/mg High 10- [facility] Basic Metabolic Profile (BMP )on 06-23-2025 BUN/CRE 27.5 RATIO High 10-20 [facility] Comment on above: Performed By: #### L 500.4100, L502.0250, L500.2500 #### [facility] [address] [place], [address] Calcium [Mass/Vol] 9.5 mg/dL Normal 7.6-11.0 [facility] Comment on above: Performed By: #### L 500.4100, L502.0250, L500.2500 #### [facility] [address] [place], [address] Chloride [Moles/Vol] 99 mmol/L Normal 98-108 [facility] Comment on above: Performed By: #### L 500.4100, L502.0250, L500.2500 #### [facility] [address] [place], [address] CO2 [Moles/Vol] 24.0 mmol/L Normal 21.0-32.0 [facility] Comment on above: Performed By: #### L 500.4100, L502.0250, L500.2500 #### [facility] [address] [place], [address] Creatinine [Mass/Vol] 0.58 mg/dL Low 0.70-1.20 [facility] Comment on above: Performed By: #### L 500.4100, L502.0250, L500.2500 #### [facility] [address] [place], [address] GAP 12 Normal 5-15 [facility] Comment on above: Performed By: #### L 500.4100, L502.0250, L500.2500 #### [facility] [address] [place], [address] GFR/1.73 sq M.predicted among non-blacks MDRD (S/P/Bld) [Vol rate/Area] 92 mL/min/{1.73_m2} Normal >60 [facility] Comment on above: Result Comment: mL/m in/1.73m2 CKD-EPI Creatinine Equation (2020) Performed By: #### L 500.4100, L502.0250, L500.2500 #### [facility] [address] [place], [address] Glucose [Mass/Vol] 95 mg/dL Normal 70-99 [facility] Comment on above: Performed By: #### L 500.4100, L502.0250, L500.2500 #### [facility] [address] [place], [address] Potassium [Moles/Vol] 3.8 mmol/L Normal 3.3-5.1 [facility] Comment on above: Performed By: #### L 500.4100, L502.0250, L500.2500 #### [facility] [address] [place], [address] Sodium [Moles/Vol] 135 mmol/L Normal 133-145 [facility] Comment on above: Performed By: #### L 500.4100, L502.0250, L500.2500 #### [facility] [address] [place], [address] Urea nitrogen [Mass/Vol] 16 mg/dL Normal 4-19 [facility] Comment on above: Performed By: #### L 500.4100, L502.0250, L500.2500 #### [facility] [address] [place], [address] Calculated very low density lipoprotein (VLDL) cholesterol measurementOrdered By: Noe Issa on 06-23-2025 Calculated very low density lipoprotein (VLDL) cholesterol measurement 23 mg/dL 5-40 [facility] Carbon dioxide, total [Moles /volume] in Central venous bloodOrdered By: Noe Issa on 06-23-2025 CO2 [Moles/Vol] 24.0 mmol/L 21.0-32.0 [facility] Chloride assayOrdered By: Michael Issa on 06-23-2025 Chloride [Moles/Vol] 99 mmol/L 98-108 [facility] Glomerular filtration rate ( GFR) estimation/1.73 sq m using serum, plasma, or whole bOrdered By: Noe Issa on 06-23-2025 GFR/1.73 sq M.predicted among non-blacks MDRD (S/P/Bld) [Vol rate/Area] 92 mL/min/{1.73_m2} >60 [facility] Comment on above: mL/min/1.73m2 CKD-EP I Creatinine Equation (2020) LDL calc ser/plasOrdered By: Noe Issa on 06-23-2025 Cholesterol in LDL [Mass/Vol] 111 mg/dL [facility] Comment on above: Zhvtqmljxl=613-140 m g/dL & Higher Jxaa=686 mg/dL or greaterFriedwald Equation for LDL-C Lipid Profileon 06-23-2025 CHOL:HDL 2.88 Normal [facility] Comment on above: Performed By: #### L 500.4100, L502.0250, L500.2500 #### [facility] [address] [place], [place], [id number] (473) Cholesterol [Mass/Vol] 205 mg/dL High <=200 [facility] Comment on above: Result Comment: Chol esterol level, Desirable <200 mg/dL Borderline high cholesterol 200-239 mg/dL High cholesterol >=240 mg/dL Recommendations of the NCEP Adult Treatment Panel for the following risk-cutoff thresholds for the [place] population. Performed By: #### L 500.4100, L502.0250, L500.2500 #### [facility] [address] [place], [place], [id number] Cholesterol in HDL [Mass/Vol] 71 mg/dL Normal [facility] Comment on above: Result Comment: Huyen onal Cholesterol Education Program (NCEP) guidelines: <40 mg/dL: Low HDL-cholesterol (major risk factor for CHD) >= 60 mg/dL: High HDL-cholesterol (negative risk factor for CHD) HDL-cholesterol is affected by a number of factors, e.g. smoking, exercise, hormones, sex and age. Performed By: #### L 500.4100, L502.0250, L500.2500 #### [facility] [address] [place], [address] Cholesterol in LDL [Mass/Vol] 111 mg/dL Normal [facility] Comment on above: Result Comment: Bord wdkyur=755-026 mg/dL Higher Fzjd=598 mg/dL or greater Friedwald Equation for LDL-C Performed By: #### L 500.4100, L502.0250, L500.2500 #### [facility] [address] [place], [address] Cholesterol in VLDL [Mass/Vol] 23 mg/dL Normal 5-40 [facility] Comment on above: Performed By: #### L 500.4100, L502.0250, L500.2500 #### [facility] [address] [place], [address] Triglyceride [Mass/Vol] 117 mg/dL Normal [facility] Comment on above: Result Comment: The drugs N-Acetylcysteine and Metamizole may falsely depress this assay. Normal range: <150 mg/dL Borderline High: 150-199 mg/dL High: 200-499 mg/dL Very High: >500 mg/dL Performed By: #### L 500.4100, L502.0250, L500.2500 #### [facility] [address] [place], [address] Microalb:Creat Ratio,Random URon 06-23-2025 Creatinine [Mass/Vol] 55.00 mg/dL Normal 28.00-217.00 [facility] Comment on above: Performed By: #### L 500.4100, L502.0250, L500.2500 #### [facility] [address] [place], [address] MALB:CREAT UNABLE TO CALCULATE Normal <30 mg/g CRE [facility] Comment on above: Performed By: #### L 500.4100, L502.0250, L500.2500 #### [facility] [address] [place], [address] MICROALBUMIN,UR < 12.0 Normal <20 mg/L [facility] Comment on above: Performed By: #### L 500.4100, L502.0250, L500.2500 #### [facility] [address] [place], [address] Microalbumin/creat ratio urO rdered By: Noe Issa on 06-23-2025 Urine microalbumin/creatinin e ratio measurement UNABLE TO CALCULATE mg/g CRE <30 [facility] Potassium measurement (mass/ volume)Ordered By: Noe Issa on 06-23-2025 Potassium (Unsp spec) [Mass/Vol] 3.8 mmol/L 3.3-5.1 [facility] Random urine creatinine rohith urement (mass/volume)Ordered By: Noe Issa on 06-23-2025 Creatinine Unsp time (U) [Mass/Vol] 55.00 mg/dL 28.00-217.00 [facility] Screening total cholesterol/ high density lipoprotein (HDL) cholesterol ratioOrdered By: Noe Issa on 06-23-2025 Cholesterol.total/Chol esterol in HDL [Mass ratio] 2.88 {ratio} [facility] Serum creatinine measurement (mass/volume)Ordered By: Noe Issa on 06-23-2025 Creatinine [Mass/Vol] 0.58 mg/dL Low 0.70-1.20 [facility] Serum glucose measurement (m ass/volume)Ordered By: Noe Issa on 06-23-2025 Glucose [Mass/Vol] 95 mg/dL 70-99 [facility] Serum or plasma calcium rohith urement (mass/volume)Ordered By: Noe Issa on 06-23-2025 Calcium [Mass/Vol] 9.5 mg/dL 7.6-11.0 [facility] Serum or plasma cholesterol in HDL measurement (mass/volume)Ordered By: Noe Issa on 06-23-2025 Cholesterol in HDL [Mass/Vol] 71 mg/dL >40 [facility] Comment on above: National Cholesterol Education Program (NCEP) guidelines:<40 mg/dL: Low HDL-cholesterol (major risk factor for CHD)>= 60 mg/dL: High HDL-cholesterol (negative risk factor for CHD)HDL-cholesterol is affected by a number of factors, e.g. smoking, exercise, hormones, sex and age. Serum or plasma cholesterol measurement (mass/volume)Ordered By: Noe Issa on 06-23-2025 Cholesterol [Mass/Vol] 205 mg/dL High <201 [facility] Comment on above: Cholesterol level, D esirable <200 mg/dLBorderline high cholesterol 200-239 mg/dLHigh cholesterol >=240 mg/dLRecommendations of the NCEP Adult Treatment Panel for the following risk-cutoff thresholds for the [place] population. Serum or plasma urea nitroge n measurement (mass/volume)Ordered By: Noe Issa on 06-23-2025 Urea nitrogen [Mass/Vol] 16 mg/dL 4-19 [facility] Sodium levelOrdered By: Noe Issa on 06-23-2025 Sodium [Moles/Vol] 135 mmol/L 133-145 [facility] Triglycerides measurementOrd ered By: Noe Issa on 06-23-2025 Triglyceride [Mass/Vol] 117 mg/dL <199 [facility] Comment on above: The drugs N-Acetylcy steine and Metamizole may falsely depress this assay. Normal range: <150 mg/dLBorderline High: 150-199 mg/dLHigh: 200-499 mg/dLVery High: >500 mg/dL Urine albumin measurement wi detection limit of 20 mg/L or less (mass/volume)Ordered By: Noe Issa on 06-23-2025 Albumin DL <= 20 mg/L (U) [Mass/Vol] < 12.0 mg/L <20 mg/L [facility] Basic Metabolic Profile (BMP )on 08-29-2024 BUN/CRE 27.4 RATIO High 09-04 [facility] Comment on above: Performed By: #### L 500.2500, L500.4100, L501.0900 #### [facility] [address] [place], [address] CA,Total 9.2 mg/dL Normal 8.5-10.1 [facility] Comment on above: Performed By: #### L 500.2500, L500.4100, L501.0900 #### [facility] [address] [place], [address] Chloride [Moles/Vol] 102 mmol/L Normal 98-107 [facility] Comment on above: Performed By: #### L 500.2500, L500.4100, L501.0900 #### [facility] [address] [place], [address] CO2 [Moles/Vol] 29.0 mmol/L Normal 21.0-32.0 [facility] Comment on above: Performed By: #### L 500.2500, L500.4100, L501.0900 #### [facility] [address] [place], [address] Creatinine [Mass/Vol] 0.69 mg/dL Normal 0.55-1.02 [facility] Comment on above: Result Comment: The validity of the calculated GFR GFRAA in patients over 70 years has not been determined. Clinical correlation is essential. Performed By: #### L 500.2500, L500.4100, L501.0900 #### [facility] [address] [place], [address] EST GFR - AA 105 mL/min Normal >60 [facility] Comment on above: Result Comment: Afri can [place] GFR Calc Performed By: #### L 500.2500, L500.4100, L501.0900 #### [facility] [address] [place], [address] GAP 4 Low 5-15 [facility] Comment on above: Performed By: #### L 500.2500, L500.4100, L501.0900 #### [facility] [address] [place], [address] GFR/1.73 sq M.predicted among non-blacks MDRD (S/P/Bld) [Vol rate/Area] 87 mL/min/{1.73_m2} Normal >60 [facility] Comment on above: Result Comment: Non- GFR Calc Performed By: #### L 500.2500, L500.4100, L501.0900 #### [facility] [address] [place], [address] Glucose [Mass/Vol] 80 mg/dL Normal 74-106 [facility] Comment on above: Performed By: #### L 500.2500, L500.4100, L501.0900 #### [facility] [address] [place], [address] Potassium [Moles/Vol] 4.1 mmol/L Normal 3.5-5.1 [facility] Comment on above: Performed By: #### L 500.2500, L500.4100, L501.0900 #### [facility] [address] [place], [address] Sodium [Moles/Vol] 135 mmol/L Low 136-145 [facility] Comment on above: Performed By: #### L 500.2500, L500.4100, L501.0900 #### [facility] [address] [place], [address] Urea nitrogen [Mass/Vol] 19 mg/dL High 7-18 [facility] Comment on above: Performed By: #### L 500.2500, L500.4100, L501.0900 #### [facility] [address] [place], [address] Lipid Profileon 08-29-2024 Cholesterol [Mass/Vol] 215 mg/dL High 200 [facility] Comment on above: Result Comment: <200 mg/dL Desirable 200-240 mg/dL Borderline >240 mg/dL High Risk Performed By: #### L 500.2500, L500.4100, L501.0900 #### [facility] [address] [place], [address] Cholesterol in HDL [Mass/Vol] 73 mg/dL Normal [facility] Comment on above: Result Comment: The drugs N-Acetylcysteine and Metamizole may falsely depress this assay. Reference Range HDL <40 mg/dL Low HDL Cholesterol HDL >or= 60 mg/dL High HDL Cholesterol Performed By: #### L 500.2500, L500.4100, L501.0900 #### [facility] [address] [place], [address] Cholesterol in LDL [Mass/Vol] 118 mg/dL Normal 0-130 [facility] Comment on above: Performed By: #### L 500.2500, L500.4100, L501.0900 #### [facility] [address] [place], [address] Cholesterol in VLDL [Mass/Vol] 24 mg/dL Normal 5-40 [facility] Comment on above: Performed By: #### L 500.2500, L500.4100, L501.0900 #### [facility] [address] [place], [address] Triglyceride [Mass/Vol] 122 mg/dL Normal [facility] Comment on above: Result Comment: The drugs N-Acetylcysteine and Metamizole may falsely depress this assay. Serum Triglycerides Reference Interval Normal <150 mg/dL Borderline high 150 - 199 mg/dL High 200 - 499 mg/dL Very High > or = 500 mg/dL Performed By: #### L 500.2500, L500.4100, L501.0900 #### [facility] [address] [place], [address] Protein+Creatinine Ratio,Uri neon 08-29-2024 PROT:CRE RATIO 339 mg/g CRE High 0-200 [facility] Comment on above: Performed By: #### L 500.2500, L500.4100, L501.0900 #### [facility] [address] [place], [address] PROTEIN,UR.RAN. < 6.0 Normal <11.9 [facility] Comment on above: Performed By: #### L 500.2500, L500.4100, L501.0900 #### [facility] [address] [place], [address] UR CREAT 17.10 mg/dL Normal NO RANGE EST. [facility] Comment on above: Performed By: #### L 500.2500, L500.4100, L501.0900 #### [facility] [address] [place], [address] CBC W/Diff, Automatedon 09-0 6-2023 Absolute Lymph 1.45 X10 3/uL Normal 0.83-4.51 [facility] Comment on above: Order Comment: Order Date: 07/22/24 Order Info: 0184-1 - CBCD Performed By: #### L 100.0100, L501.9985 #### [facility] [address] [place], [address] Absolute Neut 4.4 X10 3/uL Normal 2.0-7.7 [facility] Comment on above: Order Comment: Order Date: 07/22/24 Order Info: 0184-1 - CBCD Performed By: #### L 100.0100, L501.9985 #### [facility] [address] [place], [address] Basophils/100 WBC (Bld) 0.3 % Normal 0-1 [facility] Comment on above: Order Comment: Order Date: 07/22/24 Order Info: 0184-1 - CBCD Performed By: #### L 100.0100, L501.9985 #### [facility] [address] [place], [address] Eosinophils/100 WBC (Bld) 1.5 % Normal 0-5 [facility] Comment on above: Order Comment: Order Date: 07/22/24 Order Info: 018-1 - CBCD Performed By: #### L 100.0100, L501.9985 #### [facility] [address] [place], [address] Erythrocyte distribution width (RBC) [Ratio] 13.1 % Normal 11.6-14.6 [facility] Comment on above: Order Comment: Order Date: 07/22/24 Order Info: 018- - CBCD Performed By: #### L 100.0100, L501.9985 #### [facility] [address] [place], [address] Hematocrit (Bld) [Volume fraction] 38.2 % Normal 37-47 [facility] Comment on above: Order Comment: Order Date: 07/22/24 Order Info: 018- - CBCD Performed By: #### L 100.0100, L501.9985 #### [facility] [address] [place], [address] Hemoglobin (Bld) [Mass/Vol] 12.1 g/dL Normal 12.0-15.0 [facility] Comment on above: Order Comment: Order Date: 07/22/24 Order Info: 0184- - CBCD Performed By: #### L 100.0100, L501.9985 #### [facility] [address] [place], [address] IG% 0.300 Normal 0.0-0.9 [facility] Comment on above: Order Comment: Order Date: 07/22/24 Order Info: 0184- - CBCD Result Comment: IG% - Immature Granulocytes (promyelocytes, myelocytes and metamyelocytes) > 1% indicates that a LEFT SHIFT is Present. Performed By: #### L 100.0100, L501.9985 #### [facility] [address] [place], [address] Lymphocytes/100 WBC (Bld) 22.2 % Normal 19-41 [facility] Comment on above: Order Comment: Order Date: 07/22/24 Order Info: 018-1 - CBCD Performed By: #### L 100.0100, L501.9985 #### [facility] [address] [place], [address] MCH (RBC) [Entitic mass] 29.8 pg Normal 27.0-32.0 [facility] Comment on above: Order Comment: Order Date: 07/22/24 Order Info: 018- - CBCD Performed By: #### L 100.0100, L501.9985 #### [facility] [address] [place], [address] MCHC (RBC) [Mass/Vol] 31.7 g/dL Low 32-36 [facility] Comment on above: Order Comment: Order Date: 07/22/24 Order Info: 018- - CBCD Performed By: #### L 100.0100, L501.9985 #### [facility] [address] [place], [address] MCV (RBC) [Entitic vol] 94.1 fL Normal 81-99 [facility] Comment on above: Order Comment: Order Date: 07/22/24 Order Info: 018-1 - CBCD Performed By: #### L 100.0100, L501.9985 #### [facility] [address] [place], [address] Monocytes/100 WBC (Bld) 7.8 % Normal 0-10 [facility] Comment on above: Order Comment: Order Date: 07/22/24 Order Info: 0184-1 - CBCD Performed By: #### L 100.0100, L501.9985 #### [facility] [address] [place], [address] Neutrophils/100 WBC (Bld) 67.9 % Normal 47-70 [facility] Comment on above: Order Comment: Order Date: 07/22/24 Order Info: 018-1 - CBCD Performed By: #### L 100.0100, L501.9985 #### [facility] [address] [place], [address] Nucleated RBC (Bld) [#/Vol] 0 10*3/uL Normal 0-5 [facility] Comment on above: Order Comment: Order Date: 07/22/24 Order Info: 0184-1 - CBCD Performed By: #### L 100.0100, L501.9985 #### [facility] [address] [place], [address] Platelet mean volume (Bld) [Entitic vol] 11.2 fL Normal 6.2-12.0 [facility] Comment on above: Order Comment: Order Date: 07/22/24 Order Info: 018-1 - CBCD Performed By: #### L 100.0100, L501.9985 #### [facility] [address] [place], [address] Platelets (Bld) [#/Vol] 293 10*3/uL Normal 150-450 [facility] Comment on above: Order Comment: Order Date: 07/22/24 Order Info: 018-1 - CBCD Performed By: #### L 100.0100, L501.9985 #### [facility] [address] [place], [address] RBC (Bld) [#/Vol] 4.06 10*6/uL Low 4.2-5.4 [facility] Comment on above: Order Comment: Order Date: 07/22/24 Order Info: 0184-1 - CBCD Performed By: #### L 100.0100, L501.9985 #### [facility] [address] [place], [address] RDW SD 45.3 fl High 35.1-43.9 [facility] Comment on above: Order Comment: Order Date: 07/22/24 Order Info: 0184-1 - CBCD Performed By: #### L 100.0100, L501.9985 #### [facility] [address] [place], [place], [address] WBC (Bld) [#/Vol] 6.5 10*3/uL Normal 4.4-11.0 [facility] Comment on above: Order Comment: Order Date: 07/22/24 Order Info: 0184-1 - CBCD Performed By: #### L 100.0100, L501.9985 #### [facility] [address] [place], [place], [address] Hemoglobin A1con 07-22-2024 HbA1c (Bld) [Mass fraction] 5.5 % Normal 3.8-5.6 [facility] Comment on above: Order Comment: Order Date: 07/22/24 Order Info: 4548-4 - A1C Result Comment: Norm al < 5.7 % Prediabetic 5.7 - 6.4 % Diabetic >or= 6.5 % Please note range changes. Performed By: #### L 100.0100, L501.9985 #### [facility] [address] [place], [place], [address] CNOVon 07-09-2018 [facility] POOJA IZAGUIRRE ([id number]) 1945 FDate Time Provider Department07/09/18 10:00 AM LAB [facility] M[facility] During your visit today, we recorded the following information about you:Satnam Gasca LPN, KIP 07/09/2018 5:17 PM Mindi Delacruz is a 73 year old female patient here for the DilatedCardiomyopathy Precision Medicine Study (DCM) #: [id number] Dilated Cardiomyopathy Precision Medicine Study (DCM)Magneto Repairer: Dr. Gaetano Vargas Coordinator: Mundo Gasca1. Magneto Repairer and/or Research Nurse explained the protocol to [...] the time of the consent: Subject and [email or web address]. Subject ID Band in place? YESConsent signed date/time 07/09/2018 @ 1010 by: Nicol Sherman of [facility] minor child, was both the parent and child signatures obtained: MARLENE Ramachandran1. Study participant group: Family [email or web address]. Confirm interest in family based genetics? YES13. 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 Gaetano Vargas Coordinator: Mundo Gasca1. Magneto Repairer and/or Research Nurse explained the protocol tothe [...] date/time 07/09/2018 @ 1010 by: Nicol Sherman [facility] minor child, was both the parent and child signatures obtained: MARLENE Ramachandran1. Study participant group: Family [email or web address]. Confirm interest in family based genetics? YES13. Enrollment Tracking form completed? YES14. Medical Records Query completed? YES15. Baseline Patient Interview Questionnaire completed? YES via phone [email or web address]. Baseline Life and Family Survey completed? YES17. Medical Release form/PHI signed? YES18. If child obtained parents signature: NA19. DCM brochure provided? YES20. Cardiovascular Screening performed? YES21. Did participant agree to have sample and information stored forpotential use in genetic research? Yes22. Did participant agree to being contacted regarding [facility] and [facility]? Yes23. Blood Drawn as per protocol? YesTime: 1150 Butterfly used in left antecubital area. Blood drawn withvacutainer and labs drawn per protocol. Butterfly removed after blood draw and secured withsterile gauze. Patient tolerated procedure well.Satnam Gasca LPN Normal [facility] Encounters Encounter Date Encounter Type Care Provider Facility Start: 07-03-2025 ambulatory Noe Issa Facility:[facility] Start: 06-23-2025 End: 06-23-[address] Noe Issa MD Work Phone: -Laboratory [facility] Start: 06-23-2025 End: 06-23-[address] Noe Issa MD -Laboratory [facility] Start: 06-23-2025 End: 06-23-2025 ambulatory Noe Issa Facility:[facility] Start: 08-29-2024 End: 08-29-2024 ambulatory Mitzi S Elvin Facility:[facility] Start: 07-22-2024 End: 07-22-2024 [facility] Start: 07-09-2018 End: 07-09-2018 Patient encounter [facility] Payers Date Payer Category Payer Self-pay 2024 Unknown [id number] 2011 Medicare [id number] Unknown [id number] Unknown [id number] Unknown [id number] Unknown [id number] Social History Date Type [facility]ail [facility] Work Phone: Start: 1945 Sex Assigned At Female [facility] Evaluation note Note Date & Type Note Facility Evaluation note No assessment information availa ble [facility] Work Phone: Reason for referral (narrative) Note Date & Type Note Facility Reason for referral (narrative) No reason for referral information available [facility] Work Phone: Summary Purpose Family History No Family History Records FoundNo Family History Records Found Advance Directives No Advanced Directives Records FoundNo Advanced Directives Records Found Additional Source Comments INFORMATION SOURCE (unrecogn ized section and content) DATE CREATED AUTHOR 07/11/2018 [facility] DATE CREATED AUTHOR AUTHOR'S ORGANIZ ATION 07/02/2025 [facility] Care Teams (unrecognized sec tion and content) Team Status: Active Member Role/Relationship Status Dates Dr. Noe Issa MD Primary Care Provider Active Team Status: Inactive Member Role/Relationship Status Dates Dr. Noe Issa MD Primary Care Provider Active Start: June 23, 2025 End: June 23, 2025 Dr. Noe Issa MD Attending Provider Active Start: June 23, 2025 End: June 23, 2025 Dr. Noe Issa MD Referring Provider Active Start: June 23, 2025 End: June 23, 2025 Goals (unrecognized section and content) Goals may be documented in a n alternate section FOR RECORDS PERTAINING TO PATIENTS WHO ARE [...] BE BASED ON THE PRIMARY CLINICAL RECORDS. [employer] provides no warranty or guarantee of the accuracy or completeness of information in this document.
== END | disposition home or self-care (01) ==
PROVIDERS: PCP Family Medicine; Referring Provider Family Medicine; Visit Provider Family Medicine
DX: Z12.31 Encounter for screening mammogram for malignant neoplasm of breast (principal)
CPT/HCPCS: 77063; 77067

== ENCOUNTER → 2025-07-05 | Outpatient (CLI) | payer MEDICARE, OTHER, SELFPAY ==
--- NOTE | 2025-07-05 13:13 | BI_ITS ---
EXAM: DIAG MAMM W/CAD, BILAT 07/05/2025 CLINICAL HISTORY: F, Age 80 y/o , ABN MAMM TECHNIQUE: DIAG MAMM W/CAD, BILAT.. Compression spot views of both breasts were obtained. COMPARISON: Prior exam(s) dated July 03, 2025.. FINDINGS: TISSUE DENSITY: The breasts are heterogeneously dense, which may obscure small masses. Bilateral Breast Mammographic Findings: There are 3 subcentimeter well-defined nodular densities in the deep upper lateral aspect of the left breast. Correlation with ultrasound recommended. BI/DIAG MAMM W/CAD, BILAT IMPRESSION: 3 subcentimeter well-defined nodular densities in the deep upper lateral aspect of the left breast as described. Correlation with ultrasound is recommended OVERALL FINAL ASSESSMENT BI-RADS 0: INCOMPLETE - NEED ADDITIONAL IMAGING EVALUATION. RECOMMENDATION: Ultrasound Recommended A letter with findings and recommendations will be mailed to the patient. Reading Location: [id number]
--- NOTE | 2025-07-05 13:14 | US_ITS ---
PROCEDURE: BREAST LIMITED UNILATERAL 07/05/2025 REASON FOR EXAM: F, Age 80 y/o , ABN MAMM COMPARISON: Prior mammogram done earlier in the day.. TECHNIQUE: BREAST LIMITED UNILATERAL the left axillary region was examined with ultrasound. FINDINGS: There are 4 tiny cysts at the 2 o'clock position of the breast at 8 cm from the nipple. The largest cyst measures 3 mm x 3 mm by 1 mm. US/Breast Limited Unilateral IMPRESSION: 4 tiny cysts are seen in the left axilla. BI-RADS 2: BENIGN RECOMMENDATION: Routine annual follow-up in 1 Year Reading Location: [id number]
== END | disposition home or self-care (01) ==
LOC: OPBI 13:12
PROVIDERS: PCP Family Medicine; Referring Provider Family Medicine; Visit Provider Family Medicine
DX: R92.8 Other abnormal and inconclusive findings on diagnostic imaging of breast (principal)
CPT/HCPCS: 76642; 77062; 77066; G0279